=== PATIENT | female | born 1990 | race African-American/Black ===

== ENCOUNTER 2021-09-08 22:21 | Emergency (ER) | payer OTHER, MEDICAID ==
[~2021-09-08] VITALS: Ht 162.6 cm; Wt 70.0 kg
[2021-09-09] MEDS ORDERED: TETANUS, DIPHTHERIA, PERTUSSIS VAC/PF 0.5ML (>10YR OLD) IM ONE (00:15)
[2021-09-09] MEDS ORDERED: TETRACAINE 0.5% OPHTH DROPS 4ML LEFTEYE ONE (00:15)
[2021-09-09] MEDS ORDERED: ACETAMINOPHEN 325MG TABLET PO ONE (00:15)
[2021-09-09] MEDS ORDERED: FLUORESCEIN SODIUM 1MG/STRIP LEFTEYE ONE (00:15)
[2021-09-09] MEDS ORDERED: AMOX1TAB16 MT (02:51)
[2021-09-09 02:55] VITALS: BP 122/80
== END 2021-09-09 02:55 | disposition home or self-care (01) ==
LOC: ER 22:21
DX: S01.81XA Laceration without foreign body of other part of head, initial encounter (principal); S41.152A Open bite of left upper arm, initial encounter; W50.3XXA Accidental bite by another person, initial encounter; Y08.89XA Assault by other specified means, initial encounter; Y93.89 Activity, other specified; Y92.89 Other specified places as the place of occurrence of the external cause; Y99.8 Other external cause status; F10.129 Alcohol abuse with intoxication, unspecified; Y90.0 Blood alcohol level of less than 20 mg/100 ml; Z88.0 Allergy status to penicillin
CPT/HCPCS: 12011; 70450; 70486; 81025; 90471; 90715; 99284; Z7610